=== PATIENT | male | born 1940 | race Hispanic/Latino ===

== ENCOUNTER 2018-04-04 17:55 | Emergency (ER) | payer SELFPAY ==
[2018-04-04 19:01] LABS: Eosinophils 18 % (0-10); Hemoglobin 11.4 g/dL (14.0-18.0); Lymphocytes 15 % (21-51); MDiff Complete? YES; Mean Corpuscular HGB CONC 32.3 g/dL (32.0-36.0); Mean Corpuscular Hemoglobin 28.9 pg (27.0-31.0); Mean Corpuscular Volume 89.5 fL (78.0-98.0); Mean Platelet Volume 10.4 fL (7.4-10.4); Monocytes 11 % (0-10); Neutrophil 52 % (42-75); PLT Morphology Comment Appears Adequate; Platelet Count 138 thou/uL (130-400); RBC Distribution Width 13.2 % (11.5-14.5); Reactive Lymphocytes 3 % (0-10); Red Blood Cell (RBC) Count 3.94 mill/uL (4.70-6.10); White Blood Cell (WBC) Count 7.7 thou/uL (4.8-10.8)
[2018-04-04 19:07] LABS: ALT (SGPT) 24 U/L (8-55); AST (SGOT) 22 U/L (5-34); Albumin 3.3 g/dL (3.4-4.8); Alkaline Phosphatase 283 U/L (40-150); Anion Gap 15 mmol/L (10-20); BUN (Urea Nitrogen) 41 mg/dL (8.4-25.7); Bilirubin, Total 0.4 mg/dL (0.2-1.2); CK (CPK) 171 U/L (30-200); Calc. Creatinine Clearance 0 mL/min (70-130); Calcium 8.5 mg/dL (7.8-10.44); Carbon Dioxide 14 mmol/L (23-31); Chloride 120 mmol/L (98-107); Estimated GFR-MDRD 23; Globulin 3.4 g/dL (2.4-3.5); Glucose 90 mg/dL (83-110); Potassium 5.3 mmol/L (3.5-5.1); Protein, Total 6.7 g/dL (5.8-8.1); Sodium 144 mmol/L (136-145)
[2018-04-04 19:08] LABS: CKMB 5.8 ng/mL (0-6.6)
--- NOTE | 2018-04-04 20:21 | RAD ---
PA AND LATERAL CHEST X-RAY 04/04/18 HISTORY: Dyspnea, leg swelling. COMPARISON: 03/10/13. FINDINGS: The cardiac silhouette is mildly enlarged. Pulmonary vasculature also appears mildly increased. There is increased density at the lateral left lung base which is felt to be related to overlying soft tis samra density as opposed to pleural fluid. No consolidation is seen. Vascular calcifications again seen in the thoracic aorta. Central venous catheter is noted on prior study is no longer seen. IMPRESSION: Mild cardiomegaly with mild pulmonary vascular congestion suggesting CHF. Clinical correlation is sug gested. POS: [facility]
[2018-04-04] MEDS ORDERED: Furosemide 20 MG/2 ML VIAL ONE (20:28)
== END 2018-04-04 20:43 | disposition home or self-care (01) ==
LOC: SCSER 17:55
DX: I50.41 Acute combined systolic (congestive) and diastolic (congestive) heart failure (principal); N28.9 Disorder of kidney and ureter, unspecified; E11.40 Type 2 diabetes mellitus with diabetic neuropathy, unspecified; I25.10 Atherosclerotic heart disease of native coronary artery without angina pectoris; I25.2 Old myocardial infarction
CPT/HCPCS: 71046; 80053; 82550; 82553; 83880; 84484; 85025; 93005; 96374; J1940